=== PATIENT | female | born 1995 | race African-American/Black ===

== ENCOUNTER 2017-07-04 13:21 | Emergency (ER) | payer OTHER ==
[~2017-07-04] VITALS: Ht 172.7 cm; Wt 127.0 kg
[2017-07-04 13:22] VITALS: BP 176/100
[2017-07-04] MEDS ORDERED: CIPRODEX OTIC7.5 ML OTIC (13:48)
== END 2017-07-04 13:48 | disposition home or self-care (01) ==
LOC: ER 13:21
DX: H60.92 Unspecified otitis externa, left ear (principal); E66.9 Obesity, unspecified

== ENCOUNTER 2017-07-06 08:03 | Emergency (ER) | payer OTHER ==
[~2017-07-06] VITALS: Ht 170.2 cm; Wt 127.0 kg
[~2017-07-06 08:03] MED LIST: CIPRODEX OTIC7.5 ML OTIC
[2017-07-06 08:07] VITALS: BP 159/105
[2017-07-06] MEDS ORDERED: CORTISPORIN OTI10 M2 OTIC (08:16)
== END 2017-07-06 08:40 | disposition home or self-care (01) ==
LOC: ER 08:03
DX: H60.92 Unspecified otitis externa, left ear (principal); E66.9 Obesity, unspecified

== ENCOUNTER 2018-01-05 18:48 | Emergency (ER) | payer OTHER ==
[~2018-01-05] VITALS: Ht 170.2 cm; Wt 127.0 kg
[~2018-01-05 18:48] MED LIST changes: +CORTISPORIN OTI10 M2 OTIC
[2018-01-05] MEDS ORDERED: NAPROSYN500 MG PO (20:01)
== END 2018-01-05 20:11 | disposition home or self-care (01) ==
LOC: ER 18:48
DX: S60.221A Contusion of right hand, initial encounter (principal); E66.9 Obesity, unspecified; Z68.41 Body mass index [BMI] 40.0-44.9, adult; W22.8XXA Striking against or struck by other objects, initial encounter; Y93.89 Activity, other specified; Y92.89 Other specified places as the place of occurrence of the external cause; Y99.8 Other external cause status

== ENCOUNTER 2018-03-06 16:11 | Emergency (ER) | payer OTHER ==
[~2018-03-06] VITALS: Ht 172.7 cm; Wt 122.5 kg
[~2018-03-06 16:11] MED LIST changes: +NAPROSYN500 MG PO
[2018-03-06 16:36] LABS: URINE BILIRUBIN NEGATIVE (Negative); URINE BLOOD 1+ (Negative); URINE CLARITY CLEAR; URINE COLOR YELLOW; URINE GLUCOSE-RANDOM* NEGATIVE (Negative); URINE KETONES NEGATIVE (Negative); URINE LEUKOCYTES-REFLEX NEGATIVE (Negative); URINE NITRITE-REFLEX NEGATIVE (Negative); URINE PROTEIN (DIPSTICK) NEGATIVE (Negative); URINE SPECIFIC GRAVITY >= 1.030 (1.005-1.035); URINE UROBILINOGEN 0.2 E.U./dl (0.2-1.0)
[2018-03-06 16:48] LABS: SQUAMOUS >10 Many /LPF (0-3); URINE WBC-REFLEX 0-5 Rare /HPF (0-5)
[2018-03-06 16:49] LABS: BACTERIA-REFLEX 1-9 Few /HPF (None Seen); CASTS None Seen /LPF (None Seen); CRYSTALS None Seen /LPF (None Seen); URINE RBC None Seen /HPF (0-2)
[2018-03-06 18:54] LABS: URINE BILIRUBIN NEGATIVE (Negative); URINE BLOOD NEGATIVE (Negative); URINE CLARITY CLEAR; URINE COLOR YELLOW; URINE GLUCOSE-RANDOM* NEGATIVE (Negative); URINE KETONES TRACE (Negative); URINE LEUKOCYTES-REFLEX NEGATIVE (Negative); URINE NITRITE-REFLEX NEGATIVE (Negative); URINE PROTEIN (DIPSTICK) NEGATIVE (Negative); URINE SPECIFIC GRAVITY 1.025 (1.005-1.035)
[2018-03-06] MEDS ORDERED: FLEXERIL PO (18:59)
[2018-03-06 19:15] VITALS: BP 150/87
== END 2018-03-06 19:18 | disposition home or self-care (01) ==
LOC: ER 16:11
PROVIDERS: Emergency Medicine; Nurse Practitioner
DX: M54.5 Low back pain (principal)

== ENCOUNTER 2018-05-01 21:17 | Emergency (ER) | payer OTHER ==
[~2018-05-01] VITALS: Ht 172.7 cm; Wt 127.0 kg
[~2018-05-01 21:17] MED LIST changes: +FLEXERIL PO
[2018-05-01 21:21] VITALS: BP 139/99
[2018-05-01] MEDS ORDERED: BACTRIM DS TAB1 EACH PO (21:28)
== END 2018-05-01 21:40 | disposition home or self-care (01) ==
LOC: ER 21:17
DX: L02.91 Cutaneous abscess, unspecified (principal); E66.9 Obesity, unspecified

== ENCOUNTER 2018-08-30 09:01 | Emergency (ER) | payer OTHER ==
[~2018-08-30] VITALS: Ht 170.2 cm; Wt 122.5 kg
[~2018-08-30 09:01] MED LIST changes: +BACTRIM DS TAB1 EACH PO
[2018-08-30 09:57] LABS: URINE BILIRUBIN NEGATIVE (Negative); URINE BLOOD TRACE (Negative); URINE CLARITY CLEAR; URINE COLOR YELLOW; URINE GLUCOSE-RANDOM* NEGATIVE (Negative); URINE KETONES NEGATIVE (Negative); URINE LEUKOCYTES-REFLEX NEGATIVE (Negative); URINE NITRITE-REFLEX NEGATIVE (Negative); URINE PROTEIN (DIPSTICK) NEGATIVE (Negative); URINE SPECIFIC GRAVITY 1.025 (1.005-1.035)
[2018-08-30 10:08] LABS: ABSOLUTE NEUTROPHILS 4.7 thou/uL (1.4-8.2); BASOPHILS 0.7 % (0.0-2.0); EOSINOPHILS 0.9 % (0.0-3.0); HEMATOCRIT 37.5 % (37.0-47.0); HEMOGLOBIN 12.8 gm/dL (12.0-15.0); LYMPHOCYTES 25.3 % (24.0-44.0); MCH 28.5 pg (26.0-34.0); MCV 83.8 fL (80.0-100.0); MONOCYTES 5.5 % (1.0-8.0); PLATELET COUNT 206 thou/uL (150-400); POLYS 67.6 % (36.0-66.0); RBC 4.48 mil/uL (4.20-5.00); RDW 14.3 % (10.5-14.5); WBC 6.9 thou/uL (4.0-11.0)
[2018-08-30 10:18] LABS: CALCIUM 9.4 mg/dL (8.5-10.1); CREATININE 0.7 mg/dL (0.6-1.0); POTASSIUM 4.1 mmol/L (3.5-5.1)
[2018-08-30 10:24] LABS: ALBUMIN 3.5 g/dL (3.4-5.0); TOTAL BILIRUBIN 0.3 mg/dL (<0.1-1.0); TOTAL PROTEIN 7.7 g/dL (6.4-8.2)
[2018-08-30] MEDS ORDERED: NAPROSYN500 MG PO (11:13)
[2018-08-30 11:14] VITALS: BP 147/78
== END 2018-08-30 11:23 | disposition home or self-care (01) ==
LOC: ER 09:01
PROVIDERS: Emergency Medicine
DX: S40.011A Contusion of right shoulder, initial encounter (principal); S70.01XA Contusion of right hip, initial encounter; R10.9 Unspecified abdominal pain; M54.2 Cervicalgia; E66.9 Obesity, unspecified; Z68.41 Body mass index [BMI] 40.0-44.9, adult; V43.62XA Car passenger injured in collision with other type car in traffic accident, initial encounter; Y93.89 Activity, other specified; Y92.89 Other specified places as the place of occurrence of the external cause; Y99.8 Other external cause status

== ENCOUNTER 2018-10-23 21:11 | Emergency (ER) | payer OTHER ==
[~2018-10-23] VITALS: Ht 172.7 cm; Wt 127.0 kg
[2018-10-23 22:00] LABS: URINE BILIRUBIN NEGATIVE (Negative); URINE BLOOD TRACE (Negative); URINE CLARITY CLEAR; URINE COLOR YELLOW; URINE GLUCOSE-RANDOM* NEGATIVE (Negative); URINE KETONES TRACE (Negative); URINE NITRITE-REFLEX NEGATIVE (Negative); URINE PROTEIN (DIPSTICK) NEGATIVE (Negative); URINE SPECIFIC GRAVITY >= 1.030 (1.005-1.035); URINE UROBILINOGEN 0.2 E.U./dl (0.2-1.0)
[2018-10-23 22:01] LABS: URINE LEUKOCYTES-REFLEX 1+ (Negative)
[2018-10-23 22:02] LABS: AMORPHOUS URATES Moderate /LPF (None Seen)
[2018-10-23 22:03] LABS: BACTERIA-REFLEX 1-9 Few /HPF (None Seen); CASTS None Seen /LPF (None Seen); CRYSTALS None Seen /LPF (None Seen); SQUAMOUS None Seen /LPF (0-3); URINE RBC None Seen /HPF (0-2); URINE WBC-REFLEX 0-5 Rare /HPF (0-5)
[2018-10-23] MEDS ORDERED: IBUPROFEN 800800 M1 PO (23:10)
[2018-10-23 23:35] VITALS: BP 120/79
== END 2018-10-23 23:35 | disposition home or self-care (01) ==
LOC: ER 21:11
PROVIDERS: Emergency Medicine
DX: J02.9 Acute pharyngitis, unspecified (principal); R10.33 Periumbilical pain; E66.9 Obesity, unspecified; Z68.41 Body mass index [BMI] 40.0-44.9, adult